=== PATIENT | female | born 1950 | race Caucasian/White ===

== ENCOUNTER 2022-05-13 16:03 | Emergency (ER) | payer SELFPAY ==
[~2022-05-13] VITALS: Ht 157.5 cm; Wt 68.0 kg
[2022-05-13] MEDS ORDERED: LIDOCAINE 5% PATCH TOP STA (16:43)
[2022-05-13] MEDS ORDERED: HYDROMORPHONE HCL/PF 2MG/ML CPJ IM ONE (16:45)
[2022-05-13] MEDS ORDERED: KETOROLAC 30MG/ML VIAL IM ONE (16:45)
[2022-05-13] MEDS ORDERED: ONDANSETRON 4MG ODT PO ONE (16:45)
[2022-05-13] MEDS ORDERED: LIDOCAINE 5% PATCH TOP NR (18:00)
[2022-05-13] MEDS: KETOROLAC 30MG/ML VIAL IM NR ×2 (18:00→18:42)
[2022-05-13] MEDS ORDERED: ONDANSETRON 4MG ODT PO NR (18:15)
[2022-05-13 18:42] VITALS: BP 155/84
[2022-05-13] MEDS ORDERED: LIDO1ADH23 TP (19:06)
[2022-05-13] MEDS ORDERED: ALPR0.25 MT (19:06)
== END 2022-05-13 19:43 | disposition home or self-care (01) ==
LOC: EDBD 16:03 → ER 16:03
DX: S22.20XA Unspecified fracture of sternum, initial encounter for closed fracture (principal); S27.9XXA Injury of unspecified intrathoracic organ, initial encounter; Z88.0 Allergy status to penicillin; Z88.5 Allergy status to narcotic agent; Z88.6 Allergy status to analgesic agent; Z88.9 Allergy status to unspecified drugs, medicaments and biological substances; Z98.890 Other specified postprocedural states; V49.9XXA Car occupant (driver) (passenger) injured in unspecified traffic accident, initial encounter; Y93.89 Activity, other specified; Y92.89 Other specified places as the place of occurrence of the external cause; Y99.8 Other external cause status
CPT/HCPCS: 71045; 71120; 93005; 96372; 99284; J1170; J1885; Q0162